=== PATIENT | female | born 2000 | race Caucasian/White ===

== ENCOUNTER 2022-10-08 19:34 | Inpatient (IN) | payer MEDICARE, MEDICAID ==
[~2022-10-08] VITALS: Ht 162.6 cm; Wt 69.1 kg
[2022-10-08 20:42] LABS: RSV AMPLIFICATION NEGATIVE (NEGATIVE)
[2022-10-08 22:30] LABS: HEMATOCRIT 43.3 % (36.0-47.0); HEMOGLOBIN 14.5 g/dl (12.0-15.5); MEAN CORPUSCULAR HEMOGLOBIN 29.4 pg (27.0-33.0); MEAN CORPUSCULAR HGB CONC 33.5 g/dl (32.0-36.5); MEAN CORPUSCULAR VOLUME 87.8 fl (80.0-96.0); PLATELET COUNT, AUTOMATED 428 10^3/uL (150-450); RED BLOOD COUNT 4.93 10^6/uL (4.00-5.40); WHITE BLOOD COUNT 11.3 10^3/uL (4.0-10.0)
[2022-10-08 23:03] LABS: ETHYL ALCOHOL (ETHANOL) 0.003 % (0.000-0.010)
[2022-10-08] MEDS ORDERED: LORA-674 PO (23:03)
[2022-10-08 23:04] LABS: ACETAMINOPHEN LEVEL < 2.0 UG/ML (10.0-20.0); BILIRUBIN,DIRECT 0.1 MG/DL (<0.4)
[2022-10-08 23:05] LABS: ALBUMIN 4.2 G/DL (3.2-5.2); ALKALINE PHOSPHATASE 80 U/L (46-116); ALT/SGPT 12 U/L (7.0-40); AST/SGOT 14 U/L (<34); BILIRUBIN,TOTAL 0.4 MG/DL (0.3-1.2); BLOOD UREA NITROGEN 10 MG/DL (9-23); CALCIUM LEVEL 9.8 MG/DL (8.5-10.1); CARBON DIOXIDE LEVEL 25 MMOL/L (20-31); CHLORIDE LEVEL 108 MMOL/L (98-107); CREATININE FOR GFR 0.66 MG/DL (0.55-1.30); GLOMERULAR FILTRATION RATE > 60.0 (>60); GLUCOSE, FASTING 108 MG/DL (60-100); POTASSIUM SERUM 4.8 MMOL/L (3.5-5.1); SALICYLATE LEVEL < 3.0 MG/DL (<30); SODIUM LEVEL 141 MMOL/L (136-145); TOTAL PROTEIN 7.7 G/DL (5.7-8.2)
[2022-10-08] MEDS ORDERED: HOME MED LIST COMPLETE! XX SCH (23:05)
[2022-10-08 23:09] LABS: THYROID STIMULATING HORMONE 1.971 uIU/ML (0.55-4.78)
[2022-10-08 23:20] LABS: HCG, SERUM QUALITATIVE NEGATIVE (NEGATIVE)
[2022-10-09] MEDS ORDERED: traZODone 50 MG TAB PO PRN (00:30)
[2022-10-09] MEDS ORDERED: MOM 30ML SUSPENSION UDC PO PRN (00:30)
[2022-10-09] MEDS ORDERED: LORazepam 1 MG TAB PO PRN (00:30)
[2022-10-09] MEDS ORDERED: ACETAMINOPHEN TAB 650MG DOSE (2X325MG) PO PRN (00:30)
[2022-10-09] MEDS ORDERED: MAALOX 30 ML SUSP *UDC PO PRN (00:30)
[2022-10-09 00:41] LABS: AMPHETAMINES LEVEL URINE NEGATIVE (NEGATIVE); BARBITURATES URINE NEGATIVE (NEGATIVE); BENZODIAZEPINES URINE NEGATIVE (NEGATIVE)
[2022-10-09 00:42] LABS: CANNABINOIDS URINE NEGATIVE (NEGATIVE); COCAINE METABOLITE URINE NEGATIVE (NEGATIVE); METHADONE URINE NEGATIVE (NEGATIVE); OPIATES URINE NEGATIVE (NEGATIVE); PHENCYCLIDINE URINE NEGATIVE (NEGATIVE)
[2022-10-09 03:48] VITALS: BP 133/82
[2022-10-09] MEDS ORDERED: LORATADINE 5 MG HALF-TAB PO PRN (11:55)
[2022-10-09 16:21] VITALS: BP 117/67
[2022-10-10 06:32] VITALS: BP 104/60
[2022-10-10] MEDS ORDERED: INFLUENZA QUADRIVALENT PF VACCINE 0.5ML SYRINGE IM.IMMUN ONE (09:00)
[2022-10-10 16:12] VITALS: BP 112/70
[2022-10-11 06:00] VITALS: BP 121/69
[2022-10-11 19:10] VITALS: BP 113/83
[2022-10-12 06:00] VITALS: BP 105/62
[2022-10-12 16:24] VITALS: BP 132/87
[2022-10-13 06:23] VITALS: BP 129/78
[2022-10-13 16:23] VITALS: BP 118/58
[2022-10-14 06:25] VITALS: BP 130/66
[2022-10-14 16:32] VITALS: BP 120/70
[2022-10-15 06:49] VITALS: BP 110/67
[2022-10-15 18:59] VITALS: BP 138/79
[2022-10-16 06:09] VITALS: BP 119/59
[2022-10-16 20:11] VITALS: BP 121/79
[2022-10-17 06:36] VITALS: BP 116/72
[2022-10-17 18:09] VITALS: BP 114/79
[2022-10-18 06:29] VITALS: BP 125/57
[2022-10-18] MEDS ORDERED: LORA-674 PO (11:37)
== END 2022-10-18 13:47 | disposition home or self-care (01) | DRG 881 ==
LOC: M ED 19:34 → M ED INP 10-09 00:28 → M PSY 10-09 03:03
PROVIDERS: ADMIT Psychiatry & Neurology Psychiatry; ATTEND Psychiatry & Neurology Psychiatry
DX: F32.A Depression, unspecified (principal); F84.0 Autistic disorder; R45.851 Suicidal ideations; F41.9 Anxiety disorder, unspecified; F90.9 Attention-deficit hyperactivity disorder, unspecified type